=== PATIENT | female | born 1950 | race Caucasian/White ===

== ENCOUNTER 2019-01-22 12:57 | Emergency (ER) | payer MEDICARE, BC ==
[~2019-01-22] VITALS: Ht 157.5 cm; Wt 62.2 kg
[~2019-01-22 12:57] MED LIST: ASPI-817 PO; MIRA25TA PO; PREM625 PO
[2019-01-22] MEDS ORDERED: LIDOCAINE 2%/EPI MPF (SDV) 20 ML VIAL INJ STA (13:00)
[2019-01-22 14:24] VITALS: Ht 157.5 cm; Wt 62.2 kg
[2019-01-22 15:45] VITALS: BP 167/59; PULSE 60; RESP 16
== END 2019-01-22 16:14 | disposition home or self-care (01) ==
LOC: E/R 12:57
DX: L76.22 Postprocedural hemorrhage of skin and subcutaneous tissue following other procedure (principal)
CPT/HCPCS: 99282